=== PATIENT | female | born 1980 | race Caucasian/White ===

== ENCOUNTER 2018-11-07 09:23 | Inpatient (IN) | payer BC, SELFPAY ==
--- NOTE | 2018-11-07 10:06 | PM.OBHP.1 ---
OB HPI Date/Time Date of admission: 11/07/18 Date Patient Seen: 11/07/18 Time Patient Seen: 10:06 History of Present Condition Chief complaint: Induction for demise : 4 Para: 2 Estimated Gestational Age (weeks): 15 Narrative: Dot Cerda is a 38 year old female admitted for delivery of a 15 week demise
--- NOTE | 2018-11-07 10:14 | PM.GYNHP.1 ---
History of Present Illness Reason for admission: early complication (Fifteen week demise) Narrative: Dot Cerda is a 38 year old female admitted for delivery of a 15 week demise [facility] Surgical History (Updated 11/07/18 @ 10:16 by Zoe Guajardo MD) H/O sinus surgery (Inactive) History of appendectomy (Inactive) History of tonsillectomy (Inactive) Meds Allergies Allergy/AdvReac Type Severity Reaction Status Date / Time azithromycin Allergy Intermediate Rash Verified 11/07/18 10:18 Review of Systems Review of Systems Patient with light vaginal bleeding 3 days ago. No abdominal pain or cramping. No fevers. All systems reviewed & are unremarkable except as noted in HPI and below Exam Vital Signs (past 8 hours): Blood pressure 114/72, pulse of 67, temperature 99.4? Narrative Exam Narrative: HEENT exam within normal limits. Lungs are clear to auscultation percussion. Heart is regular rate and rhythm no S3-S4 or murmurs. Abdomen is soft, nontender. No palpable organomegaly. Abdominal ultrasound does not reveal any heart motion. Extremities without edema and nontender. Objective Labs Result Diagrams: 11/07/18 11:00 Assessment & Plan (1) demise before 20 weeks with retention of fetus: Current visit: Yes Status: Acute Assessment & Plan narrative: Patient with 15 week demise. Discussed dilation and evacuation versus induction with prostaglandins. Discussed possible side effects of the prostaglandins. Discussed possible need for D and C for delivery of the placenta after delivery of the fetus. Discussed options for trying to do a determine why the baby including autopsy. Patient is unsure at this time. Patient states that she is Rh negative and received RhoGAM at [facility] on [facility].
--- NOTE | 2018-11-07 10:22 | P.HPOB_ITS ---
History of Present Illness Reason for admission: early complication (Fifteen week demise) Narrative: Dot Cerda is a 38 year old female admitted for delivery of a 15 week demise [facility] Surgical History (Updated 11/07/18 @ 10:16 by Zoe Guajardo MD) H/O sinus surgery (Inactive) History of appendectomy (Inactive) History of tonsillectomy (Inactive) Meds Allergies Allergy/AdvReac Type Severity Reaction Status Date / Time azithromycin Allergy Intermediate Rash Verified 11/07/18 10:18 Review of Systems Review of Systems Patient with light vaginal bleeding 3 days ago. No abdominal pain or cramping. No fevers. All systems reviewed & are unremarkable except as noted in HPI and below Exam Vital Signs (past 8 hours): Blood pressure 114/72, pulse of 67, temperature 99.4? Narrative Exam Narrative: HEENT exam within normal limits. Lungs are clear to auscultation percussion. Heart is regular rate and rhythm no S3-S4 or murmurs. Abdomen is soft, nontender. No palpable organomegaly. Abdominal ultrasound does not reveal any heart motion. Extremities without edema and nontender. Objective Labs Result Diagrams: 11/07/18 11:00 Assessment & Plan (1) demise before 20 weeks with retention of fetus: Current visit: Yes Status: Acute Assessment & Plan narrative: Patient with 15 week demise. Discussed dilation and evacuation versus induction with prostaglandins. Discussed possible side effects of the prostaglandins. Discussed possible need for D and C for delivery of the placenta after delivery of the fetus. Discussed options for trying to do a determine why the baby including autopsy. Patient is unsure at this time. Patient states that she is Rh negative and received RhoGAM at [facility] on [facility].
[2018-11-07] MEDS: miSOPROStol 200 MCG TABLET 600 MCG VAG ×4 (11:11→19:57)
[2018-11-07 11:18] LABS: Add Manual Diff / Slide Review NO; Basophils Absolute Auto 0 /uL (0-100); Basophils Percent Auto 0.5 % (0-2); Eosinophils Absolute Auto 200 /uL (0-450); Hematocrit 39.5 % (36-46); Hemoglobin 13.5 g/dL (12.0-16.0); Lymphocytes Absolute Auto 1500 /uL (1100-4500); Lymphocytes Percent Auto 22.9 % (25-40); Mean Corpuscular Hemoglobin 29.2 PG (26-34); Mean Corpuscular Volume 85.8 fL (80-100); Monocytes Absolute Auto 500 /uL (0-900); Monocytes Percent Auto 7.6 % (3-14); Neutrophils Absolute Auto 4300 /uL (1500-7000); Platelet Count 270 X10^3/uL (150-400); Red Cell Distribution Width 13.1 % (11.6-14.8); White Blood Cell Count 6.5 X10^3/uL (4.5-11.0)
[2018-11-07 12:09] LABS: Thyroid Stimulating Hormone 1.58 uIU/mL (0.47-4.68)
[2018-11-07] MEDS: ACETAMINOPHEN 325 MG TABLET 650 MG PO ×2 (17:12→22:02)
[2018-11-07] MEDS: DIPHENOXYLATE/ATROP 2.5/0.025 TABLET 1 EACH PO ×4 (17:53→20:28)
[2018-11-07] MEDS: ZOLPIDEM 5 MG TABLET PO (23:01)
--- NOTE | 2018-11-07 23:07 | PM.PROC.1 ---
Procedures Date/Time Date of procedure: 11/07/18 Time of procedure: 23:07 General Procedure description: After the 4th dose prostaglandin for induction for demise the patient had rupture membranes followed by a precipitous delivery of the fetus followed by what appears to be totally intact placenta. Patient is not having any active bleeding. Her pain is minimal. No tears. Gross external examination fetus did not show any specific anomalies although perhaps mild cystic hygroma. Patient declined sending to pathology. Complications: none
[2018-11-07] MEDS: IBUPROFEN 600 MG TABLET PO (23:16)
--- NOTE | 2018-11-08 09:47 | PM.DS.1 ---
History of Present Illness Date Patient Seen: 11/08/18 Time Patient Seen: 09:47 Chief complaint: Induction for demise Discharge Providers Date of admission: 11/07/18 09:23 Discharge Date: 11/08/18 Discharge provider: Zoe Guajardo MD Summary Discharge Diagnosis: Delivery of 15 week demise Hospital Course: Patient was admitted with 15 week known demise for delivery. She received vaginal Cytotec and delivered the fetus and placenta intact. Patient had no apparent complications from delivery. She had mild bleeding and minimal pain. No fevers. Patient has appropriate sadness over loss of the baby. Patient is Rh negative and received RhoGAM prior to coming into the hospital. Status at Discharge Cognitive/behavioral status at discharge: oriented Functional status at discharge: independent ambulation Overall status at discharge: patient is progressing back to baseline Time Spent with Patient Less than 30 minutes Exam Vital Signs (past 8 hours): Blood pressure 117/76, pulse 80, temperature 96.9? Narrative Exam Narrative: Patient's abdomen is soft nontender. Extremities without edema and nontender. Objective Labs Result Diagrams: 11/07/18 11:00 Labs: Laboratory Results - last 24 hr 11/07/18 11/07/18 11/07/18 11:00 11:00 11:00 WBC 6.5 RBC 4.60 Hgb 13.5 Hct 39.5 MCV 85.8 MCH 29.2 MCHC 34.0 RDW 13.1 Plt Count 270 Neut % (Auto) 66.0 Lymph % (Auto) 22.9 L [place] % (Auto) 7.6 Eos % (Auto) 3.0 Baso % (Auto) 0.5 Neut # (Auto) 4300 Lymph # (Auto) 1500 [place] # (Auto) 500 Eos # (Auto) 200 Baso # (Auto) 0 TSH 1.58 Blood Type A Negative Antibody Screen Positive Antibody Identification Anti-D Discharge Plan Discharge Plan Patient Disposition: Home Discharge Med Rec/Prescriptions Prescriptions: No Action No Known Home Medications RF: 0 Follow up/Referrals: Zoe Guajardo MD [Physician] - 1 Week Provider Discharge Instructions Diet: Regular Activity: Nothing in vagina for 4 weeks. No other restrictions. Skin/Wound/Dressing Care Report to your healthcare provider any signs of infection, such as:: chills, fever and increased pain Discharge Data Attending Provider: Foist,Zoe B Admit Date/Time: 11/07/18 09:23
[2018-11-08 09:57] VITALS: BP 117/76; PULSE 80; RESP 18; TEMP 36.1
[2018-11-09 12:17] LABS: RPR Screen Nonreactive (Nonreactive)
[2018-11-11 11:57] LABS: Parvovirus B19 Antibody 3.1 (< 0.9)
== END 2018-11-08 10:12 | disposition home or self-care (01) | DRG 779 ==
PROVIDERS: Admitting Provider Specialist; Visit Provider Specialist
DX: O02.1 Missed abortion (principal); Z3A.15 15 weeks gestation of pregnancy
CPT/HCPCS: 59050; 59200; 59821; 84443; 85025; 86592; 86747; 86850; 86870; 86900; 86901; 99221; 99238; G0379; S0191

== ENCOUNTER → 2020-09-14 08:03 | Outpatient (CLI) | payer BC, SELFPAY ==
--- NOTE | 2020-09-14 08:04 | DI.US.S_ITS ---
PROCEDURE: US OB <= 14 WEEKS FETUS INDICATIONS: DATES OUTSIDE/PRIOR DATING DATA: Last menstrual period (LMP): 07/26/2020 LMP-based estimated date of delivery (CONSTANTINE): 05/02/2021. First dating scan (date and location): 09/14/2020. Estimated date of delivery (CONSTANTINE) from first dating scan: 05/11/2021. TECHNIQUE: Real-time scanning was performed of the fetus and maternal pelvic organs, with image documentation. Endovaginal scanning was also performed to better visualize the fetus and maternal ovaries. COMPARISON: None. FINDINGS: Embryo: [place]-rump length measures 3 mm corresponding to 5 weeks 6 days. No definite cardiac activity seen at this time. Measurement variability in dating: +/- 4 weeks by LMP, +/- 7 days by mean sac diameter (use before 6 weeks gestation if crown-rump length not able to be measured), +/- 5 days by crown-rump length (up to 8 weeks 6 days gestation), +/- 7 days by crown-rump length (up to 13 weeks 6 days gestation). Maternal organs: Ovaries within normal limits, with 2.1 cm left corpus luteal cyst . IMPRESSION: 5 week 6 day intrauterine gestation with visualization of a 3 mm pole and no definitive cardiac activity seen at this time. Recommend short-term follow-up ultrasound in 1 week to further assessed viability. Dictated by: Priyank PATTERSON Interpreted: Cameron Arechiga MD on 09/14/2020 at 10:48 Transcribed by: KG on 09/14/2020 at 10:50 Approved by: Cameron Arechiga M.D. on 09/14/2020 at 14:51
== END ==
PROVIDERS: Referring Provider Obstetrics & Gynecology; Visit Provider Obstetrics & Gynecology
DX: Z34.81 Encounter for supervision of other normal pregnancy, first trimester (principal); Z3A.01 Less than 8 weeks gestation of pregnancy
CPT/HCPCS: 76801; 76817

== ENCOUNTER 2020-10-31 12:58 | Day surgery (SDC) | payer BC, SELFPAY ==
[2020-10-25 12:48] VITALS: BMI 34.6
--- NOTE | 2020-10-31 | PATH_ITS ---
[facility] Accession Number: [id number] . 01 Material submitted: . product of conception - PRODUCTS OF CONCEPTION . 02 Diagnosis: Products of Conception: Products of conception identified. V 11/04/2020 [facility] Local . 02 Electronically signed: . Jessica Armstrong MD, Pathologist NPI- [id number] . 01 Gross description: . The specimen is received in formalin and labeled with products of conception. It consists of an 8.8 x 2.7 x 0.5 cm aggregate of brown-burns to pink-burns diffusely hemorrhagic ragged soft tissue fragments. No distinguishing features are grossly apparent. The specimen is filtered and submitted entirely. . Summary of Sections: A1 = Largest fragment, trisected, three pieces. A2-A5 = Products of conception, filtered, aggregate. ([id number]) /[facility] 11/02/2020 1650 Local . 02 Pathologist provided ICD-10: O02.1 . 02 CPT . 044866 Performed at: 01 [facility] [address] [id number] MD Suresh Cole MD Phone: [phone] Performed at: 02 [facility] [address] [place], [place] [id number] MD Wen Wilson MD Phone: [phone]
[2020-10-31 13:24] VITALS: BP 128/70; PULSE 59; RESP 18; TEMP 36.7; O2SAT 100; BMI 34.6
[2020-10-31] MEDS: ACETAMINOPHEN 325 MG TABLET 975 MG PO (13:42)
[2020-10-31] MEDS: LACTATED RINGERS 1,000 ML 42 ML IV (13:42)
--- NOTE | 2020-10-31 15:30 | PM.HP.1 ---
History of Present Illness History of Present Illness Date Patient Seen: 10/31/20 Time Patient Seen: 15:31 Chief complaint: SDC Narrative: Patient is a 40-year-old 5 para 2 with a missed at 9 weeks gestation. She presents for a suction D&C. Patient History Medical History (Updated 10/25/20 @ 12:58 by Carolyn Nagy RN) History of induction of labor (11/08/18) Plantar fasciitis Surgical History (Updated 11/07/18 @ 10:16 by Zoe Guajardo MD) H/O sinus surgery History of appendectomy History of tonsillectomy Family & Social History Social History: household members spouse Tobacco & Substance use: Smoking Status Never smoker alcohol intake current alcohol intake frequency a few times a month Substance Use Type does not use Meds Home Medications and Allergies Home Medications Medication Instructions Recorded Confirmed Type No Known Home Medications 11/07/18 10/31/20 History Allergies Allergy/AdvReac Type Severity Reaction Status Date / Time azithromycin Allergy Intermediate Rash Verified 10/31/20 13:43 Exam Vital Signs (past 8 hours): - 10/31/20 13:24 Temperature 98.0 F Pulse Rate 59 L Respiratory Rate 18 Blood Pressure 128/70 Pulse Oximetry 100 Oxygen Delivery Method Room Air Narrative Exam Narrative: HEENT: No thyromegaly, no anterior cervical or supraclavicular lymphadenopathy. Lungs:Clear to auscultation bilaterally, no wheezes. Cardiovascular: Regular rate and rhythm, no murmurs, rubs, or gallops. Abdomen: Well-healed scars. No hepatosplenomegaly. No masses palpable. External genitalia: Normal Vagina: Normal Cervix: Normal Bimanual exam: 9 Week size uterus. Mobile. Rectal: No masses. Assessment & Plan Assessment & Plan narrative: Assessment: 40-year-old 5 para 2 with a missed at 9 weeks Plan: Suction D&C The risks, benefits, and alternatives to the procedure were explained to the patient. The risks including bleeding, infection, and uterine perforation. She understands these risks and agrees to proceed. A full par Q was held and consent form was signed. COVID-19 COVID-19 status: Negative Result date/Date tested (Pos, Neg/Pending): 10/31/20 Time Spent With Patient Time with patient: less than 15 minutes
--- NOTE | 2020-10-31 15:34 | PM.PREOP ---
Pre-operative Note COVID-19 COVID-19 status: Negative Result date/Date tested (Pos, Neg/Pending): 10/31/20 Interval Note History & Physical reviewed/Exam performed by Physician: Yes Changes to H&P: No H&P completed within 30 days and has changed as indicated here:: 10/31/20
--- NOTE | 2020-10-31 15:52 | SUR.OPER ---
Lithotomy on padded OR bed, head on pillow, arms secured on padded arm boards at <90 degrees abduction. Legs secured in padded yellow fins stirrups.
--- NOTE | 2020-10-31 15:57 | PM.GYNOP.1 ---
Operative Date/Time/Diagnoses Date of procedure: 10/31/20 Time of procedure: 15:57 Pre-op diagnosis: Incomplete miscarriage Post-op diagnosis: same Procedure & Clinicians Procedure: Procedures Operation Date: 10/31/20 14:15 <No data on this case meets the specified criteria> Indications: Incomplete miscarriage Surgeon: Tuyet Valladares Anesthesia Type: General (LMA) Operative Notes Findings: 8 week size anteverted uterus Large amount of products of conception Closure Type: not applicable Specimen(s): products of conception Estimated blood loss (mL): 100 Procedure in detail: After informed consent was obtained, the patient was taken to the operating room where she was placed in the dorsal supine position. After adequate LMA general anesthesia was achieved, she was placed in the dorsal lithotomy position, and prepped and draped in the usual sterile fashion. A time-out was performed. A bivalve speculum was placed into the vagina, and the anterior lip of the cervix grasped with a single-tooth tenaculum. The cervical os was sequentially dilated to the # 9 Hegar dilator. The # 8 plastic curved curette passed easily into the endometrial cavity. Several passes with suction revealed a large amount of tissue. Several passes revealed a small amount of blood. The plastic curette was removed from the uterus. Gentle sharp curettage was performed yielding moderate amount of tissue. Several more passes with suction revealed blood only. The instruments were removed from the uterus. The single-tooth tenaculum was removed from the anterior lip of the cervix. The bivalve speculum was removed from the vagina. Sponge, lap, and instrument counts were correct x2. The patient tolerated the procedure well, and was taken to PACU in stable condition. Complications: none Post-operative Condition: stable Disposition: PACU Plan for aftercare: Home after recovery
[2020-10-31 16:03] VITALS: BP 126/51; PULSE 54; RESP 14; TEMP 36.6; O2SAT 99
[2020-10-31 16:08] VITALS: BP 138/45; PULSE 51; RESP 13; O2SAT 100
[2020-10-31 16:13] VITALS: BP 135/54; PULSE 58; RESP 12; O2SAT 100
[2020-10-31 16:16] VITALS: BP 131/67; PULSE 56; RESP 14; TEMP 36.7; O2SAT 99
== END 2020-10-31 16:44 | disposition home or self-care (01) ==
PROVIDERS: Referring Provider Obstetrics & Gynecology; Visit Provider Obstetrics & Gynecology
PROC: (CPT 58120; principal; 2020-10-31 14:15)
DX: O03.4 Incomplete spontaneous abortion without complication (principal); Z3A.09 9 weeks gestation of pregnancy
CPT/HCPCS: 59812; J1100; J2250; J2405; J2704; J3010

== ENCOUNTER → 2020-10-31 13:58 | Outpatient (CLI) | payer BC, SELFPAY ==
[2020-10-31 14:30] LABS: COVID19 -Nasal RAPID Negative (Negative)
== END ==
PROVIDERS: Visit Provider Obstetrics & Gynecology
DX: Z01.812 Encounter for preprocedural laboratory examination (principal); Z20.822 Contact with and (suspected) exposure to COVID-19
CPT/HCPCS: 87635

== ENCOUNTER 2023-06-06 09:42 | Observation (INO) | payer BC, SELFPAY ==
--- NOTE | 2023-06-06 10:05 | DI.US.S_ITS ---
PROCEDURE: US UMBILICAL CORD DOPPLER INDICATIONS: IUGR; 2V CORD OUTSIDE/PRIOR DATING DATA: Last menstrual period (LMP): Not known LMP-based estimated date of delivery (CONSTANTINE): Not applicable First dating scan (date and location): Not known Estimated date of delivery (CONSTANTINE) from first dating scan: Not applicable The calculations are made using the reported CONSTANTINE of July 03, 2023 COMPARISON: None. TECHNIQUE: Real-time scanning was performed of the fetus, with image documentation. Color and pulse Doppler interrogation was then performed of the umbilical artery near its insertion into the placenta. FINDINGS: General: Single living intrauterine gestation is present. Amniotic fluid index 18.9 centimeters with deepest pocket measuring 6.7 centimeters. presentation is vertex. heart rate measured at 147 beats per minute. Umbilical artery: SD ratio at cord insertion 2.1; mid 1.9; placenta 2.5 IMPRESSION: Normal umbilical cord flow. We strive to produce accurate, complete, and clear reports of imaging services. To assist us in improving patient care, this report was composed using standard report templates and voice recognition software. Therefore, it may contain abnormal punctuation, insertions and/or omissions. Occasional wrong-word or sound-alike substitutions may occur. Though we review the report and make efforts to correct it, we do recommend that the report be read carefully in proper context to recognize any text inaccuracies. Dictated by: Clarisse Santos MD, PhD on 06/06/2023 at 13:02 Approved by: Clarisse Santos MD, PhD on 06/06/2023 at 13:05
--- NOTE | 2023-06-06 12:26 | PM.OBTRLD ---
Visit Information Visit Information Date of evaluation: 06/06/23 Primary OB Provider: Angy Nuñez On-call OB Provider: Angy Nuñez Reason for Evaluation: Yes non-stress test non-stress test reason: other (SUA, FGR) Comments/Additional reasons for admission: Dot eCrda, 42yo female, @ 36w 1d by LMP and 7w US presenting to triage for NST and umbilical artery doppler for SUA and FGR. Denies ctx, bleeding, or leaking of fluids. Endorses movement. course significant for single umbilical artery noted @ 20w anatomy scan with symmetric EFW of 22%. Repeat growth US completed at 36w0d (04/04/2024) showed overall EFW of 12% with AC of 4%. care followed by CNMs. Vital Signs Vital Signs: BP: 120/64 HR: 68 bpm T: 35.9c temporal PFSH Medical History Chicken pox (~1985) History of induction of labor (11/08/18) Plantar fasciitis Surgical History Anesthesia History of appendectomy (~2016) H/O sinus surgery History of tonsillectomy (~1998) Family History Grandfather Dementia Grandmother Dementia Social History marital status: number of children: 2 household members: spouse and children lives independently: Yes housing: house pets and animals: Yes (1 cat, 1 dog, chickens. Will not manage litter box or chickens) education level: college ([employer]'s degree) occupational status: unemployed current occupational exposures/hazards: No special martha needs: No seatbelt use: always water heater temp set < 120 deg: Yes working smoke detector in home: Yes fire extinguisher in home: Yes carbon monox detector in home: Yes firearms in home: No do you feel safe at home: Yes Smoking Status: Never smoker second hand exposure: No alcohol intake: former substance use type: does not use during the past year weight has: increased > 10 lbs well-balanced diet: daily or most days daily servings fruits/ve-4 caffeine: No Type(s) of exercise: walking and other (hiking) Review of Systems Review of Systems ROS: Yes All systems reviewed with the patient and are negative except as otherwise documented Exam Vital Signs (past 8 hours): see above Resp Effort & Inspection: normal respiratory effort and able to speak in complete sentences Auscultation: clear to auscultation bilaterally Cardio Rate: regular rate Rhythm: regular rhythm Evaluation Evaluation Baseline heart rate: 135 Variability: Moderate (11-25) monitor accelerations: Present Monitor Decelerations: Absent Category of Tracing: Reactive Comments: no uterine activity Diagnosis, Plan/Disposition Plan/Disposition Plan: A: Late grandmultip Not in labor AMA Single umbilical artery FGR (AC<4%) Normal UA doppler flow Reassuring NST P: Consulted with Dr. Alonzo at Located within [facility] for FGR and SUA. Per Dr. Alonzo's recommendation, weekly UA doppler and SIRISHA with bi-weekly NST and delivery in the 39th week. Reviewed recommendations and plan to schedule testing until IOL @ 39th week (06/26/23) with Dot who is in agreement with plan of care. RTC as scheduled for bi-weekly NSTs and weekly USs will now be at . OB Disposition: home
== END 2023-06-06 12:58 | disposition home or self-care (01) ==
PROVIDERS: Admitting Provider Nurse Practitioner Obstetrics & Gynecology; Referring Provider Nurse Practitioner Obstetrics & Gynecology; Visit Provider Nurse Practitioner Obstetrics & Gynecology
DX: O36.5930 Maternal care for other known or suspected poor fetal growth, third trimester, not applicable or unspecified (principal); O43.893 Other placental disorders, third trimester; Z3A.36 36 weeks gestation of pregnancy
CPT/HCPCS: 59025; 76820; G0378; G0379

== ENCOUNTER → 2023-06-13 08:59 | Outpatient (CLI) | payer BC, SELFPAY ==
--- NOTE | 2023-06-13 09:00 | DI.US.S_ITS ---
PROCEDURE: US OB LIMITED INDICATIONS: BPP and UA doppler OUTSIDE/PRIOR DATING DATA: Last menstrual period (LMP): Not available. LMP-based estimated date of delivery (CONSTANTINE): Not available. First dating scan (date and location): Not available. Estimated date of delivery (CONSTANTINE) from first dating scan: Not available. The calculations are made using the working CONSTANTINE of 07/03/2023. TECHNIQUE: Real-time scanning was performed of the fetus, with image documentation and biometric measurements. Biophysical profile was also obtained. COMPARISON: [facility], , UMBILICAL CORD DOPPLER, 06/06/2023, 10:42. FINDINGS: General: A single living intrauterine gestation is present. Presentation: Vertex, spine to the left. Placenta: Placental position is posterior , without previa. Amniotic fluid index: 13.1 cm, normal range is 5-24 cm. Single deepest vertical pocket is 4.5 cm. heart rate: 119 beats per minute. Maternal cervical canal: Closed measuring 4.6 cm long. Normal lower limit is 2.5 cm. biometrics: Not performed Clinically estimated gestational age: 37 weeks 1 day Biophysical profile: Tone: 2 points. Movement: 2 points. Respiration: 2 points. Largest pocket of fluid: 2 points. Umbilical artery Doppler: S/D/ = 2.3-2.6 IMPRESSION: 1. A single living intrauterine gestation redemonstrated. 2. Normal biophysical profile (8 out 0f 8). 3. Normal cord Doppler exam. We strive to produce accurate, complete, and clear reports of imaging services. To assist us in improving patient care, this report was composed using standard report templates and voice recognition software. Therefore, it may contain abnormal punctuation, insertions and/or omissions. Occasional wrong-word or sound-alike substitutions may occur. Though we review the report and make efforts to correct it, we do recommend that the report be read carefully in proper context to recognize any text inaccuracies. Dictated by: Vernon Martinez M.D. on 06/13/2023 at 13:28 Approved by: Vernon Martinez M.D. on 06/13/2023 at 13:32
== END ==
LOC: US 08:59
PROVIDERS: Referring Provider Nurse Practitioner Obstetrics & Gynecology; Visit Provider Nurse Practitioner Obstetrics & Gynecology
DX: Z36.4 Encounter for antenatal screening for fetal growth retardation (principal); O09.523 Supervision of elderly multigravida, third trimester; O28.3 Abnormal ultrasonic finding on antenatal screening of mother; Z3A.37 37 weeks gestation of pregnancy
CPT/HCPCS: 76815

== ENCOUNTER → 2023-06-20 08:47 | Outpatient (CLI) | payer BC, SELFPAY ==
--- NOTE | 2023-06-20 | DI.US.S_ITS ---
PROCEDURE: US OB LIMITED INDICATIONS: Abnormal ultrasonic finding on screening of mother OUTSIDE/PRIOR DATING DATA: Last menstrual period (LMP): Unknown LMP-based estimated date of delivery (CONSTANTINE): Unknown First dating scan (date and location): Not available Estimated date of delivery (CONSTANTINE) from first dating scan: Not available The calculations are made using the working CONSTANTINE of 07/03/2023. TECHNIQUE: Real-time scanning was performed of the fetus for biophysical profile, with image documentation. Color and pulse Doppler interrogation was also performed of the umbilical artery near its insertion into the placenta. Endovaginal scanning: Not indicated COMPARISON: [facility], OB LIMITED, 06/13/2023, 9:36. FINDINGS: General: A single living intrauterine gestation is present. Presentation: Vertex with spine towards maternal right side. Placenta: Placental position is left posterior, without previa. Amniotic fluid index: 12.7 cm, normal range is 5-24 cm. Single deepest vertical pocket is 3.6 cm. heart rate: 145 beats per minute. Maternal cervical canal: 4.6 cm long. Normal lower limit is 2.5 cm. Estimated gestational age from initial scan: 38 weeks, 1 day. Biophysical profile: Tone: 2 points. Movement: 2 points. Respiration: 2 points. Largest pocket of fluid: 2 points. Umbilical artery Doppler: 2.9, 1.8, 2.4 IMPRESSION: 1. Single live intrauterine gestation with fetus in vertex presentation. heart rate is 145 beats per minute. Normal amount of amniotic fluid. SIRISHA equals 12.7 cm. 2. biophysical profile score is 8/8. 3. Normal umbilical artery S/D ratio. We strive to produce accurate, complete, and clear reports of imaging services. To assist us in improving patient care, this report was composed using standard report templates and voice recognition software. Therefore, it may contain abnormal punctuation, insertions and/or omissions. Occasional wrong-word or sound-alike substitutions may occur. Though we review the report and make efforts to correct it, we do recommend that the report be read carefully in proper context to recognize any text inaccuracies. Dictated by: Guillermo Morris M.D. on 06/20/2023 at 13:37 Approved by: Guillermo Morris M.D. on 06/20/2023 at 13:39
== END ==
LOC: US 08:47
PROVIDERS: Referring Provider Nurse Practitioner Obstetrics & Gynecology; Visit Provider Nurse Practitioner Obstetrics & Gynecology
DX: O09.523 Supervision of elderly multigravida, third trimester (principal); O28.3 Abnormal ultrasonic finding on antenatal screening of mother; Z36.4 Encounter for antenatal screening for fetal growth retardation; Z3A.38 38 weeks gestation of pregnancy
CPT/HCPCS: 76815

== ENCOUNTER 2023-06-20 09:29 | Outpatient (CLI) | payer BC, SELFPAY ==
--- NOTE | 2023-06-20 11:01 | PM.PROC.1 ---
Procedures Date/Time Date of procedure: 06/20/23 Time of procedure: 09:45 General Procedure description: Dot is here after BPP for NST. Overall feeling good movement from baby. Still feels good about IOL next , 06/27/23. Requests SVE today. O: BP 123/59 HR: 83 bpm Temp: 36.1 C temporal CE: 1/50/-3, medium, mid position. NST: Patient here for scheduled NST for FGR, SUA, AMA. Baseline: 130 bpm Variability: moderate Accelerations: present Decelerations: none Impression: Reactive NST Plan: SVE today. Reviewed normal BPP via images/senior environmental technician report (radiologist report not yet prepared). Will call with results if report has discrepancy. Follow up 06/25/23 with CNM as scheduled. ALICIA Mcqueen, BHARTI
== END 2023-06-20 10:32 | disposition home or self-care (01) ==
LOC: LABOR 09:32 → OB 06-24 11:06
PROVIDERS: Referring Provider Nurse Practitioner Obstetrics & Gynecology; Visit Provider Nurse Practitioner Obstetrics & Gynecology
DX: O36.5930 Maternal care for other known or suspected poor fetal growth, third trimester, not applicable or unspecified (principal); O43.893 Other placental disorders, third trimester; O09.523 Supervision of elderly multigravida, third trimester; Z3A.38 38 weeks gestation of pregnancy; O28.3 Abnormal ultrasonic finding on antenatal screening of mother; Z36.4 Encounter for antenatal screening for fetal growth retardation
CPT/HCPCS: 59025; 76815; G0378; G0379

== ENCOUNTER 2023-06-25 16:37 | Inpatient (IN) | payer BC, SELFPAY ==
--- NOTE | 2023-06-25 17:34 | PM.OBHP.IH.1 ---
OB HPI Date/Time Date of admission: 06/25/23 Date Patient Seen: 06/25/23 Time Patient Seen: 17:00 History of Present Condition Chief complaint: Preadmission Labs Last OB Lab Results: Blood Type A Negative 11/07/18 11:00 Antibody Screen Positive 11/07/18 11:00 Hematocrit 39.5 % (36-46) 11/07/18 11:00 Hemoglobin 13.5 g/dL (12.0-16.0) 11/07/18 11:00 Prior (ies) Past Pregnancies Del. Date GA/Weeks Labor Lgth Wt Sex Route Outcome Anesthesia Place Delv Breastfeed Preg Comp Name 04/02/12 41 2.693 kg Male vaginal live - full term [place], [place] 2 years other [place] 04/22/13 8 spontaneous 08/11/14 41 2.722 kg Female vaginal live - full term [place], [place] 2 years none [place] 11/08/18 15 spontaneous IH intrauterine 10/31/20 9 spontaneous 11/17/21 6 spontaneous Delivery Date: 04/02/12 Last Updated by: Lorelei Lockwood RN 2-vessel cord Delivery Date: 10/31/20 Last Updated by: Lorelei Lockwood RN Required D&C [facility] Medical History Chicken pox (~1985) History of induction of labor (11/08/18) Plantar fasciitis Surgical History Anesthesia History of appendectomy (~2016) H/O sinus surgery History of tonsillectomy (~1998) Family History Grandfather Dementia Grandmother Dementia Social History marital status: number of children: 2 household members: spouse and children lives independently: Yes housing: house pets and animals: Yes (1 cat, 1 dog, chickens. Will not manage litter box or chickens) education level: college ([employer]'s degree) occupational status: unemployed current occupational exposures/hazards: No special martha needs: No seatbelt use: always water heater temp set < 120 deg: Yes working smoke detector in home: Yes fire extinguisher in home: Yes carbon monox detector in home: Yes firearms in home: No do you feel safe at home: Yes Smoking Status: Never smoker second hand exposure: No alcohol intake: former substance use type: does not use during the past year weight has: increased > 10 lbs well-balanced diet: daily or most days daily servings fruits/ve-4 caffeine: No Type(s) of exercise: walking and other (hiking) Meds Home Medications and Allergies Home Medications Medication Instructions Recorded Confirmed Type prenat.vits,bridget,ype-suri-utzks 1 tab PO DAILY 10/31/21 06/18/22 History amoxicillin 875 mg-potassium 1 tab PO BID #14 tabs 12/15/21 06/18/22 Rx clavulanate 125 mg tablet Allergies Allergy/AdvReac Type Severity Reaction Status Date / Time azithromycin Allergy Intermediate Rash Verified 06/18/22 14:12 Sulfa (Sulfonamide Allergy Intermediate Rash Verified 06/18/22 14:12 Antibiotics)
--- NOTE | 2023-06-25 17:35 | PM.OBHP.1 ---
OB HPI Date/Time Date of admission: 06/25/23 Date Patient Seen: 06/25/23 Time Patient Seen: 17:00 History of Present Condition Chief complaint: OB : 7 Para: 2 Estimated Date of Delivery: 07/03/23 Estimated Gestational Age (weeks): 38w6d Narrative: Dot Cerda is a 42 year old female, @ 38w6d by sure LMP concordant with 7w US presenting for scheduled medical induction of labor for advanced maternal age, growth restriction, and single umbilical artery. Gibson balloon catheter placed in clinic today approximately at 1445. Denies contractions or leaking of fluid. Has light vaginal bleeding since gibson placement. Normal movement. Weekly UA doppler/SIRISHA and biweekly NST have been WNL. Hoping for low-intervention vaginal . FOB at bedside for support. care followed by CNMs and co-managed by [facility] at [place]. notable for: AMA, FGR, SUA, Rh negative. Declined Tdap. Indications Indication for induction OB: intra-uterine growth restriction (EFW: 12%, AC: 4% @ 36w) and other (SUA) History of Present care: good care, initiated at week # (7), number of visits (10) and pounds weight gain (17) Dating criteria: LMP confirmed by 1st trimester US Ultrasounds: normal mid trimester US and abnormal US findings Abnormal ultrasound findings: 02/13/23 @20w - EFW 22% with AC 46% 05/08/23 @ 32w - EFW 19th% with AC 44% 06/05/23 @36w - EFW 12% with AC of 4% Obstetrical complications: growth restriction and other (Single Umbilical Artery) Preadmission Labs Blood type: A (-) negative -: Antibody screen: negative, GBS status: negative, HBsAG: negative, HIV: negative and RPR/VDLR: negative -: Chlamydia screen: not detected and Gonorrhea screen: not detected -: Rubella: immune and Varicella: immune HCT: 36.3 HCAB: negative PAP: Abnormal (Hx HPV, 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) Urine: normal 1 hr GTT: 110 Narrative: MsAFP negative Prior (ies) History: x2 (2011 and 2014) SAB x3 (2013, 2019 - 15w, 2021) Evaluation Evaluation Baseline heart rate: 125 Variability: Moderate (11-25) monitor accelerations: Present Monitor Decelerations: Absent Contraction Frequency (minutes): 6 Uterine Contraction Intensity: Mild Status: Category l Dilation (cm): 1 Effacement (%): 75 Dilation: 1-2 cm Effacement: 60-70% station: -3 Position of cervix: mid Consistency: soft Slaughter score: 6 Comments: CE performed at clinic with gibson insertion at 1445 [facility] Medical History Chicken pox (~1985) History of induction of labor (11/08/18) Plantar fasciitis Surgical History Anesthesia History of appendectomy (~2016) H/O sinus surgery History of tonsillectomy (~1998) Family History Grandfather Dementia Grandmother Dementia Social History marital status: number of children: 2 household members: spouse and children lives independently: Yes housing: house pets and animals: Yes (1 cat, 1 dog, chickens. Will not manage litter box or chickens) education level: college (Gian[employer]'s degree) occupational status: unemployed current occupational exposures/hazards: No special martha needs: No seatbelt use: always water heater temp set < 120 deg: Yes working smoke detector in home: Yes fire extinguisher in home: Yes carbon monox detector in home: Yes firearms in home: No do you feel safe at home: Yes Smoking Status: Never smoker second hand exposure: No alcohol intake: former substance use type: does not use during the past year weight has: increased > 10 lbs well-balanced diet: daily or most days daily servings fruits/ve-4 caffeine: No Type(s) of exercise: walking and other (hiking) Meds Home Medications and Allergies Home Medications Medication Instructions Recorded Confirmed Type prenat.vits,bridget,krr-bzsv-eexih 1 tab PO DAILY 10/31/21 06/18/22 History Allergies Allergy/AdvReac Type Severity Reaction Status Date / Time azithromycin Allergy Intermediate Rash Verified 06/18/22 14:12 Sulfa (Sulfonamide Allergy Intermediate Rash Verified 06/18/22 14:12 Antibiotics) Review of Systems Review of Systems ROS: Yes All systems reviewed with the patient and are negative except as otherwise documented OB Exam Vital signs Blood Pressure: 125/62 Pulse Rate: 61 Respiratory Rate: 16 Temperature: 97.0 F Resp Effort & Inspection: normal respiratory effort and able to speak in complete sentences Auscultation: clear to auscultation bilaterally Cardio Rate: regular rate Rhythm: regular rhythm Heart Sounds: S1 normal and S2 normal Presentation: vertex Objective Labs 06/25/23 18:10 Assessment and Plan Assessment and Plan Assessment and Plan narrative: A: 42 year old @ 38w6d IOL for FGR, SUA, AMA Rh Negative GBS Negative FHR Cat I P: Admit with routine labs/orders Obtain written consent for admission and IOL Cervical ripening with Gibson bulb in place and Misoprostol 50mg buccal q4hr. Pitocin to be used PRN. Continuous monitoring for concerns Provide labor support as needed Reassess PRN in early labor.
[2023-06-25] MEDS: miSOPROStoL 25 MCG TABLET 50 MCG SL (17:57)
[2023-06-25 18:19] VITALS: BP 125/62; PULSE 61; RESP 16; TEMP 36.1
[2023-06-25 18:27] LABS: Add Manual Diff / Slide Review NO; Basophils Absolute Auto 0 /uL (0-100); Basophils Percent Auto 0.5 % (0-2); Eosinophils Absolute Auto 200 /uL (0-450); Eosinophils Percent Auto 2.2 % (2-4); Hemoglobin 11.7 g/dL (12.0-16.0); Lymphocytes Absolute Auto 1600 /uL (1100-4500); Lymphocytes Percent Auto 21.1 % (25-40); Mean Corpuscular HGB Conc 33.4 % (30-36); Mean Corpuscular Hemoglobin 27.8 PG (26-34); Mean Corpuscular Volume 83.1 fL (80-100); Monocytes Absolute Auto 600 /uL (0-900); Monocytes Percent Auto 7.3 % (3-14); Neutrophils Absolute Auto 5300 /uL (1500-7000); Neutrophils Percent Auto 68.9 % (50-75); Platelet Count 233 X10^3/uL (150-400); Red Blood Cell Count 4.21 X10^6/uL (4.0-5.2); Red Cell Distribution Width 15.2 % (11.6-14.8); White Blood Cell Count 7.7 X10^3/uL (4.5-11.0)
[2023-06-25] MEDS: CALCIUM CARBONATE 500 MG TAB 1000 MG PO (19:45)
[2023-06-25 19:54] VITALS: BP 125/62
--- NOTE | 2023-06-25 22:41 | PM.OBPNLAB ---
Date/Time Date Patient Seen: 06/25/23 Time Patient Seen: 22:41 Pain Control Pain control: tolerating well Comments: Dot is on yoga ball with FOB sleeping at bedside. Has started to feel mild contractions more since misoprostol dose at 1800. Continued to have occasional minimal vaginal bleeding coming from gibson catheter. Contraction pattern are irregular with coupling. VS: BP- 136/65 HR- 65 bpm T- 35.8c temporal Pelvic Exam Dilation (cm): 1 Effacement (%): 75 station: -3 Comments: Deferred. Contractions Monitor mode: External Contraction frequency (min): 1 (1-5min with coupling) Contraction pattern: Irregular Contraction intensity: Mild Status status: Category l Heart Rate Baseline: 115 Monitor Accelerations: Present Monitor Decelerations: Absent Monitor Variability: Moderate Assessment and Plan Assessment: induction ongoing Plan: other Comments: A: 42yo, @ 38w6d IOL for AMA, FGR, SUA FHR Cat I GBS neg P: Discussed recommendation for pitocin induction given current contraction pattern, Dot agrees with plan. Titrate pitocin per IOL protocol. Provide labor support as needed. Reassess prn in early labor.
[2023-06-25] MEDS: OXYTOCIN PREMIX 30 UNIT/500 ML PLAST..BAG IV (23:15)
[2023-06-25] MEDS: LACTATED RINGERS 1,000 ML 100 ML IV (23:15)
--- NOTE | 2023-06-26 05:00 | PM.OBPNLAB ---
Date/Time Date Patient Seen: 06/26/23 Time Patient Seen: 05:00 Pain Control Pain control: tolerating well Comments: Dot is swaying on yoga ball through mild contractions every 3min with coupling. Feels that contractions are slightly more intense since starting pitocin, though still able to tolerate well and able to talk though them. Was able to nap earlier in the morning. Interested in CE. Pitocin started at 2315. Peters balloon out at 0100. Pelvic Exam Dilation (cm): 4 Effacement (%): 75 station: -2 Amniotic membrane status: Intact Comments: soft, anterior Contractions Monitor mode: External Pitocin rate (mU/min): 16 Contraction frequency (min): 2 (2-8) Contraction duration (min): 1 Contraction pattern: Regular (with occational coupling) Contraction intensity: Mild Status status: Category l Heart Rate Baseline: 125 Monitor Accelerations: Present Monitor Decelerations: Absent Monitor Variability: Moderate Assessment and Plan Assessment: induction ongoing Plan: continuous present management Comments: A: 42yo, @ 39w0d IOL for AMA, FGR, and SUA LOT/GEE by yandel's FHR Cat I P: Assisted Dot onto side lying w/peanut ball. Provided reassurance of Cat I FHR Continue pitocin titration per protocol Reviewed plan to continue pitocin titration with reassuring FHR and well spaced contractions. Dot agrees with plan and has no questions. Reassess as needed, early labor.
--- NOTE | 2023-06-26 07:48 | PM.OBPNLAB ---
Date/Time Date Patient Seen: 06/26/23 Time Patient Seen: 01:30 Pain Control Pain control: tolerating well Comments: Dot is in bathroom after gibson balloon expulsion at 0100. Currently on 6mu of pitocin with mild contractions every 2-6 min that she is talking through. VS: BP- 121/58 HR- 57 bpm T- 35.9c temporal Pelvic Exam Dilation (cm): 1 Effacement (%): 75 station: -2 Amniotic membrane status: Intact Comments: CE deferred. Gibson out, assumed 4-5cm dilated. Contractions Monitor mode: External Pitocin rate (mU/min): 6 Contraction frequency (min): 4 (2-6) Contraction duration (min): 1 Contraction pattern: Regular (with occational coupling) Contraction intensity: Mild Status status: Category l Heart Rate Baseline: 120 Monitor Accelerations: Present Monitor Decelerations: Absent Monitor Variability: Moderate Assessment and Plan Assessment: induction ongoing Plan: continuous present management Comments: A: 42yo, IOL for AMA, FGR, SUA GBS negative FHR Cat I P: Titrate pitocin per protocol following gibson removal. Provide labor support as needed. Reassess prn, early labor.
--- NOTE | 2023-06-26 08:17 | PM.OBPNLAB ---
Date/Time Date Patient Seen: 06/26/23 Time Patient Seen: 08:17 Pain Control Pain control: tolerating well Comments: Dot is sitting in bed about to eat her breakfast. Having mild contractions every 4-7min. Decreased pitocin to 10mu @ 0742 in preparation for AROM. Feels that they are less intense since turning down pitocin. VS: BP- 125/61 HR- 55 bpm T- 35.7c temporal Pelvic Exam Dilation (cm): 3.5 Effacement (%): 75 station: -2 Amniotic membrane status: Ruptured (AROM of blood tinged clear fluid @ 0813) Contractions Monitor mode: External Pitocin rate (mU/min): 12 Contraction frequency (min): 4 (4-7) Contraction duration (min): 1 Contraction pattern: Regular (with occational coupling) Contraction intensity: Mild Status status: Category l Heart Rate Baseline: 130 Monitor Accelerations: Present Monitor Decelerations: Absent Monitor Variability: Moderate Assessment and Plan Assessment: induction ongoing Plan: continuous present management Comments: A: 42yo @ 39w0d IOL for AMA, FGR, SUA AROM GBS negative FHR Cat I P: Offered AROM for labor progression. Dot agrees with plan and AROM performed. Continue pitocin titration per protocol; currently at 12mu of pitocin Continuous monitoring Provide labor support as needed Reassess in 4hr or sooner prn
--- NOTE | 2023-06-26 09:28 | PM.OBPNLAB ---
Date/Time Date Patient Seen: 06/26/23 Time Patient Seen: 09:28 Pain Control Pain control: tolerating well Comments: Dot is swaying on yoga ball. Describes her current contractions as mild cramps. VS: BP- 125/61 HR- 55bpm T- 35.7c temporal Pelvic Exam Dilation (cm): 3.5 Effacement (%): 75 station: -2 Amniotic membrane status: Ruptured (x 1hr continued clear fluid) Contractions Monitor mode: External Pitocin rate (mU/min): 12 Contraction frequency (min): 4 (4-7) Contraction duration (min): 1 Contraction pattern: Regular (with occational coupling) Contraction intensity: Mild (by patient report and by palpation) Status status: Category l Heart Rate Baseline: 135 Monitor Accelerations: Present Monitor Decelerations: Absent Monitor Variability: Moderate Assessment and Plan Assessment: induction ongoing Plan: continuous present management Comments: A: 42yo, @ 39w0d IOL for AMA, FGR, SUA Early labor AROM x 1hr FHR Cat I P: Increase pitocin per protocol Recommended Dot do her normal morning routine and walk around unit Provide labor support as needed Reassess in 4hr or sooner, prn
--- NOTE | 2023-06-26 13:08 | PM.OBPNLAB ---
Date/Time Date Patient Seen: 06/26/23 Time Patient Seen: 13:08 Pain Control Pain control: tolerating well Comments: Dot is in bed with RN at bedside working on getting FHR back on monitor. heart tones have been difficult to auscultate despite hand holding monitor. Has been hand holding FHR monitor on/off for the past 2 hr. Has been in bed for past hour alternating between sides. Feeling contractions low and in the front. CNM and SNM at bedside at 1236 to provide support with FHR monitoring and labor assessment. CE performed and found to be 4/85/-2. Dot felt discouraged and tearful with the degree of cervical change. CNM provided support and reassurance of positive and appropriate timed cervical change in early labor. FHR able to be auscultated clearly with CNMs assistance. Anticipating her kids coming to visit (they are on their way). Pelvic Exam Dilation (cm): 4 Effacement (%): 85 station: -2 Amniotic membrane status: Ruptured (x5hr no longer leaking fluid) Comments: VS: BP 113/58 HR 64 bpm Temp 36.0 Contractions Monitor mode: External Pitocin rate (mU/min): 18 Contraction frequency (min): 3 Contraction duration (min): 1 Contraction pattern: Regular Contraction intensity: Moderate Status status: Category l Heart Rate Baseline: 130 Monitor Accelerations: Present Monitor Decelerations: Absent Monitor Variability: Moderate Assessment and Plan Assessment: induction ongoing Comments: A: 42yo, @ 39w0d Early labor IOL for AMA, FGR, SUA AROM x 5hr GBS neg Afebrile FHR Cat 1 P: Discussed and recommended scalp electrode for more accurate/reliable FHR monitoring. Dot declined and would like to continue with external monitoring. Provided reassurance and support that slow but positive cervical change is normal in early labor. Offered therapeutic rest. Dot declines as her kids are coming to visit and wants to spend time with them. Encouraged Dot to finds ways to engage in self-care. Reassess prn, in early labor.
--- NOTE | 2023-06-26 15:41 | PM.OBPRVD ---
Labor & Delivery Delivery date: 06/26/23 Intrapartal Events: Precipitous Labor < 3 hours Cervical ripening method: other (Gibson, misoprostol x 1) Induction method: per pitocin protocol Delivery augmentation: rupture of membranes Delivery monitor: external FHT Route of delivery: L&D Laceration Description: None Quantitative Blood Loss: 132 Anesthesia Type: None Narrative: Dot Cerda is a 42yo, female, now P3 @ 39w0d based on LMP concordant with 7w US who presented yesterday for medical induction of labor for advanced maternal age, growth restriction, and single umbilical artery. She had gibson balloon placed earlier that day in clinic. Was given misoprostol x1, pitocin, and AROM for induction of labor. Was in early labor for approximately 19hr and then quickly progressed through active labor to delivery. [place] rectal pressure at 1300 with spontaneous urge to push at 1430. Pushed effectively for a short 2nd stage on hands and knees. FHR was Cat I throughout 2nd stage but was often difficult to maintain continuous tracing. NSVB of baby at 1510, shoulders delivered easily through loose nuchal cord. Baby was passed through maternal legs was ready to receive him and Dot was assisted into a semi-reclined position with baby boy skin to skin. Apgars 8, 9. Placenta delivered spontaneously with maternal efforts and appeared to be intact. 2 vessel cord clamped and cut by FOB at 15 minutes of life after cord pulsing had stopped. Cord blood collected for blood typing. Perineum inspected and found to be intact. QBL: 132 mL. Mom and baby left stable and is being initiated. Dot and Laci are thrilled to meet their baby. Jenn Worrell CONTAMINATED LAND CONSULTANT, CNM, IBCLC [place] Baby 1: gender: Male Presentation: vertex Position: Left Occiput Anterior Placenta delivery description: Spontaneous Cord Vessel Description: 2 Vessels and Nuchal Cord (very loose) score (1 min): 8 score (5 min): 9 weight: 2.886 kg
[2023-06-26] MEDS: KETOROLAC 30 MG/ML VIAL IV (15:57)
[2023-06-26 18:50] VITALS: BP 142/88
[2023-06-26] MEDS: ACETAMINOPHEN 325 MG TABLET 650 MG PO (19:47)
[2023-06-26] MEDS: IBUPROFEN 600 MG TABLET PO (22:03)
[2023-06-27] MEDS: ACETAMINOPHEN 325 MG TABLET 650 MG PO ×2 (03:15→09:01)
[2023-06-27] MEDS: IBUPROFEN 600 MG TABLET PO ×2 (05:46→09:02)
--- NOTE | 2023-06-27 10:39 | PM.OBDS.1 ---
Discharge Providers Provider Date of admission: 06/25/23 16:37 Discharge Date: 06/27/23 Primary care physician: Doctor Jaimie MD Consults: 06/25/23 17:11 Consult to Anesthesiology Urgent Comment: Consulting Provider: Anesthesiologist Reason for consultation: Epidural 06/27/23 15:36 Consult to Plant Physiology Teacher Routine Comment: Discharge provider: Jenn Worrell CNM, ARNP Summary Hospital Course Date Patient Seen: 06/27/23 Time Patient Seen: 08:30 Diagnoses: O80 Hospital Course: Dot was admitted for IOL r/to AMA, SUA, possible IUGR. Early labor was long, followed by precipitous active phase and short pushing phase. with normal EBL. Intact perineum. Normal course. Peripartum Data Infant Delivery Method: Natural Vaginal Laceration Description: None Episiotomy description: None [place] 1: Gender: Male Disposition of : home Discharge Diagnosis (1) Advanced maternal age (AMA), 40 years or greater: Status: Acute (2) Encounter for supervision of high risk in third trimester, antepartum: Status: Acute (3) growth restriction antepartum: Status: Acute Problem Details: [place] EFW 13%ile with SUA confirmed. (4) (normal spontaneous vaginal delivery): Status: Acute Status at Discharge Cognitive/behavioral status at discharge: oriented and calm Functional status at discharge: independent ambulation Overall status at discharge: patient is progressing back to baseline Time Spent with Patient Time attestation: Total time spent providing and/or coordinating discharge services: Time spent: Less than 30 minutes Specific discharge activities: discharge teaching Objective Labs 06/25/23 18:10 Exam Vital Signs (past 8 hours): BP 106/64 HR: 64 bpm RR: 12/min Temp: 98.6 F temporal Discharge Plan Discharge Plan Patient Disposition: Home Discharge orders & Medications Prescriptions: Continued prenat.vits,bridget,[id number]-izpk-[id number] Tablet 1 tab PO DAILY Follow up/Referrals: Jenn Worrell CNM, ARNP [Advanced Director Sales And Marketing] - 2 Weeks (As scheduled at 2 and 6 weeks) Doctor Etienne MD [Primary Care Provider] - Diet/Activity/Treatments Diet: Diet as Tolerated and Regular Diet comment: increase fiber and fluid to aid in healing and stooling Skin/Wound/Dressing Care Report to your healthcare provider any signs of infection, such as:: chills, fever, night sweats and unusual redness Visit Report/Discharge Packet Stand Alone Forms: Discharge: Care, Patient Portal/API Discharge Data Primary Care Provider: Miscellaneous,Doctor
== END 2023-06-27 11:35 | disposition home or self-care (01) | DRG 807 ==
PROVIDERS: Advanced Practice Midwife; Admitting Provider Nurse Practitioner Obstetrics & Gynecology; Referring Provider Nurse Practitioner Obstetrics & Gynecology; Visit Provider Nurse Practitioner Obstetrics & Gynecology
DX: O36.5930 Maternal care for other known or suspected poor fetal growth, third trimester, not applicable or unspecified (principal); Z37.0 Single live birth; Z3A.38 38 weeks gestation of pregnancy
CPT/HCPCS: 36415; 59050; 59200; 85025; 86850; 86870; 86900; 86901; G0379; J1885; J2590